=== PATIENT | female | born 1965 | race Hispanic/Latino ===

== ENCOUNTER → 2024-04-02 | Outpatient (CLI) | payer OTHER ==
[~2024-04-02] MED LIST: METOPROLOL TARTRATE 1 MG/ML 5ML VIAL IV ONE
== END | disposition home or self-care (01) ==
LOC: RAH 10:17 → EDUNIT# 10:30
PROVIDERS: ATTEND Student in an Organized Health Care Education/Training Program
DX: R07.9 Chest pain, unspecified (principal)
CPT/HCPCS: 75574; J3490 ×2

== ENCOUNTER → 2024-04-27 | Outpatient (CLI) | payer OTHER | END | disposition home or self-care (01) | LOC: SHCH 07:56 → EDUNIT# 08:00 | PROVIDERS: ATTEND Student in an Organized Health Care Education/Training Program | DX: I08.0 Rheumatic disorders of both mitral and aortic valves (principal); R07.9 Chest pain, unspecified | CPT/HCPCS: 93306; 93356 ==